=== PATIENT | male | born 1935 | race Caucasian/White ===

== ENCOUNTER 2017-11-27 18:00 | Inpatient (IN) | payer MEDICARE, BC ==
[2017-11-27] MEDS ORDERED: AMPICILLIN & SULBACTAM SODIUM 1.5 GM in SODIUM CHL 0.9% 50ML MIN-BAG+ 50 ML IVPB ONE (18:31)
--- NOTE | 2017-11-27 18:38 | ED.PDOC ---
History of Present Illness - General Time Seen by Provider: 11/27/17 18:28 Source: family, EMS Exam Limitations: clinical condition - History of Present Illness Initial Comments: patient comes in from the detention for fever, emesis, and hypoxia. Patient' s states that at lunchtime he was doing well and had a good appetite. He is nonverbal secondary to advanced dementia but this was his baseline. At dinner time nurse witnessed him with emesis with thick brown substance without overt bleeding. states that is what woke him up. On evaluation they found him to have a fever of 104 and a O2Sat of 82% on RA. EMS was called and despite O2 via NC his oxygen continued to be 86% and NRB was started. Per he has had aspiration pneumonia once before about a year ago. He was very ill but then was able to recover and has been able to ear without problems every since. He has history of essential tremor, dementia, and prostate cancer. Timing/Duration: 1-3 hours Severity: severe Activities at Onset: rest Possible Cause: other - see HPI hx of aspiration pneumonia Improving Factors: nothing Worsening Factors: nothing Allergies/Adverse Reactions: Allergies NO KNOWN ALLERGY Allergy (Verified 11/07/14 12:00) Review of Systems - Review of Systems Review of Systems: 11/27/17 18:38 unable to evaluate secondary to advanced dementia. Past Medical History (General) - Patient Medical History Hx Dementia: Yes Hx Other PMH: Yes - Prostate CA, essential tremor Family Medical History - Family History Father Family History: No Known Physical Exam - Physical Exam General Appearance: Frail, Ill Appearing Eyes, Ears, Nose, Throat Exam: PERRL/EOMI, normal ENT inspection, TMs normal, pharynx normal, other - brittle broken teeth Neck: non-tender, full range of motion, supple, normal inspection Respiratory: no respiratory distress, crackles, other - fine crackles at the right base, no wheezes Cardiovascular/Chest: normal peripheral pulses, regular rate, rhythm, no edema, no gallop, no JVD Peripheral Pulses: radial,right: 2+, radial,left: 2+ Gastrointestinal/Abdominal: normal bowel sounds, non tender, soft, no organomegaly Neurologic: other - patient will open eyes to touch but does not follow command and does not vocalize. per he no longer verbalizes and best response is holding her hand at baseline Progress - Progress Progress: 11/27/17 19:25 11/27/17 18:52 LACTIC ACID Stat BLOOD CULTURE Stat Laboratory Results WBC 11.6 K/mm3 (4.8-10.8) H 11/27/17 18:31 RBC 4.91 M/mm3 (4.70-6.10) 11/27/17 18:31 Hgb 14.8 gm/dL (14.0-18.0) 11/27/17 18: Hct 43.6 % (42.0-52.0) 11/27/17 18: MCV 88.8 fl (80.0-94.0) 11/27/17 18: MCH 30.2 pg (27.0-31.0) 11/27/17 18: MCHC 34.0 g/dL (33.0-37.0) 11/27/17 18: RDW 13.9 % (11.5-14.5) 11/27/17 18: Plt Count 199 K/mm3 (130-400) 11/27/17 18: MPV 9.3 fl (7.40-10.4) 11/27/17 18:31 Absolute Neuts (auto) 10.30 K/uL (1.8-6.8) H 11/27/17 18: Absolute Lymphs (auto) 0.90 K/uL (1.0-3.4) L 11/27/17 18:31 Absolute Monos (auto) 0.30 K/uL (0.2-0.8) 11/27/17 18: Absolute Eos (auto) 0.10 K/uL (0.0-0.4) 11/27/17 18: Absolute Basos (auto) 0.10 K/uL (0.0-0.1) 11/27/17 18: Neutrophils % 88.7 % (42.0-78.0) H 11/27/17 18: Lymphocytes % 7.5 % (20.0-50.0) L 11/27/17 18:31 Monocytes % 2.8 % (2.0-9.0) 11/27/17 18: Eosinophils % 0.5 % (1.0-5.0) L 11/27/17 18: Basophils % 0.5 % (0.0-2.0) 11/27/17 18: PT 12.8 SECONDS (9.4-12.5) H 11/27/17 18: INR 1.100 11/27/17 18: PTT (SP) 29.6 SECONDS (25.1-36.5) 11/27/17 18:31 Sodium 134 mmol/L (135-145) L 11/27/17 18: Potassium 3.7 mmol/L (3.6-5.0) 11/27/17 18: Chloride 102 mmol/L (101-111) 11/27/17 18: Carbon Dioxide 22 mmol/L (21-31) 11/27/17 18: Anion Gap 13.7 (12-18) 11/27/17 18: BUN 11 mg/dL (7-18) 11/27/17 18: Creatinine 0.83 mg/dL (0.6-1.3) 11/27/17 18: BUN/Creatinine Ratio 13.3 (10-20) 11/27/17 18: Random Glucose 115 mg/dL (70-105) H 11/27/17 18: Serum Osmolality 268.6 mOsm/L (275-295) L 11/27/17 18: Calcium 8.8 mg/dL (8.4-10.2) 11/27/17 18: Magnesium 1.8 mg/dL (1.8-2.5) 11/27/17 18: Total Bilirubin 0.9 mg/dL (0.2-1.0) 11/27/17 18: Direct Bilirubin 0.2 mg/dL (0-0.2) 11/27/17 18: Indirect Bilirubin 0.7 mg/dL (0.2-0.8) 11/27/17 18: AST 34 IU/L (10-42) 11/27/17 18: ALT 14 IU/L (10-60) 11/27/17 18: Alkaline Phosphatase 77 IU/L (42-121) 11/27/17 18: Creatine Kinase 31 IU/L (38-174) L 11/27/17 18: CK-MB (CK-2) 1.5 ng/mL (0.0-4.4) 11/27/17 18:31 CK-MB (CK-2) % Not Reportable 11/27/17 18:31 Troponin I < 0.02 ng/mL (0.01-0.05) 11/27/17 18:31 Serum Total Protein 7.5 gm/dL (6.4-8.2) 11/27/17 18:31 Albumin 3.6 g/dl (3.2-5.5) 11/27/17 18:31 Patient Name: GUMARO GARCIA Abnormal Lab Results 11/27/17 0718 18:31 18:52 WBC 11.6 H Absolute Neuts (auto) 10.30 H Absolute Lymphs (auto) 0.90 L Neutrophils % 88.7 H Lymphocytes % 7.5 L Eosinophils % 0.5 L PT 12.8 H Sodium 134 L Random Glucose 115 H Serum Osmolality 268.6 L Lactic Acid 2.5 H* Creatine Kinase 31 L Gender: Male Date of : 1935 Referring Physician: RUBIN WALL Organization: [facility] Accession Number: [id number] Requested Date: November 27, 2017 18:31 Report Status: Final Requested Procedure: 1 Procedure Description: Chest,1 View Modality: CR Findings Reporting MD: Abdelrahman Leos Fellow MD: Not available Dictation Time: Pediatric Oncology Nurse: Not available Kick Plate Installer Date: EXAM DESCRIPTION: Chest,1 View CLINICAL HISTORY: ?aspiration pneumonia COMPARISON: None FINDINGS: Cardiac silhouette is within normal limits. Patient is rotated. EKG leads project over the chest. Aorta is tortuous. There is atherosclerosis. Focal opacity at the right lower lung could be secondary to atelectasis, an infectious process cannot be excluded. Apices are obscured by superimposed patient's mandible. There is no acute osseous process visualized. IMPRESSION: Focal opacity at the right lower lung could be secondary to atelectasis, an infectious process cannot be excluded. Recommend follow-up. 11/27/17 19:41 spoke to and she desires him to be admitted here. She is ok with antibiotics but no invasive treatment or resuscitation. We have called incident response engineer UROLOGY NURSE James Garcia and he will be admitted Departure - Departure Clinical Impression: Pneumonia Qualifiers: Pneumonia type: aspiration pneumonia Aspiration pneumonia type: due to vomit Laterality: right Lung location: lower lobe of lung Qualified Code(s): J69.0 - Pneumonitis due to inhalation of food and vomit Disposition: Admit Patient Condition: Poor Referrals: MARIALUISA NOLAN [Primary Care Provider] - 1-2 Weeks
[2017-11-27] MEDS ORDERED: AMPICILLIN & SULBACTAM SODIUM 1.5 GM VIAL ONE (19:12)
[2017-11-27] MEDS ORDERED: SODIUM CHL 0.9% 50ML MIN-BAG+ 50 ML IVPB ONE (19:13)
--- NOTE | 2017-11-27 19:23 | RAD ---
EXAM DESCRIPTION: Chest,1 View CLINICAL HISTORY: ?aspiration pneumonia COMPARISON: None FINDINGS: Cardiac silhouette is within normal limits. Patient is rotated. EKG leads project over the chest. Aorta is tortuous. There is atherosclerosis. Focal opacity at the right lower lung could be secondary to atelectasis, an infectious process cannot be excluded. Apices are obscured by superimposed patient's mandible. There is no acute osseous process visualized. IMPRESSION: Focal opacity at the right lower lung could be secondary to atelectasis, an infectious process cannot be excluded. Recommend follow-up. Electronically signed by: Abdelrahman Leos MD 11/27/2017 7:22 PM CDT
[2017-11-27] MEDS ORDERED: SODIUM CHLORIDE 0.9% (FLUSH) 10 ML SYG IV PRN (21:18)
--- NOTE | 2017-11-27 21:18 | HP ---
SUPERVISING PHYSICIAN: Bill Valdez MD CHIEF COMPLAINT: Aspiration. HISTORY OF PRESENT ILLNESS: Mr. Singh is an 82-year-old male patient who resides at [facility]. He presented to the Emergency Room from the custodial today with fever, emesis and hypoxia. His noted that at lunchtime he was doing well and had a good appetite. He is nonverbal due to advanced dementia, but apparently as at his normal baseline status. At dinnertime, the nursing staff witnessed that he had an episode of emesis with some thick, brown substance. His noted that it woke him up and on evaluation, he had a fever of 104 with O2 saturation 82% on room air. EMS was then called and despite O2 via nasal cannula, oxygen continued to be low at 86% and required a nonrebreather. His notes that the patient has had aspiration pneumonia in the past approximately a year previous. He has a significant history of essential tremor, dementia and prostate cancer, but otherwise has been doing fairly well. In the Emergency Room, the patient had initial temperature of 102.5 with heart rate 105, blood pressure 105/59, saturation 96% on nonrebreather. Laboratory studies showed he had a mild leukocytosis with a left shift. Chemistries showed he had elevated lactic acid at 2.5. Otherwise, electrolytes were within normal limits. BUN was 11, creatinine 0.3, liver functions all within normal limits. Troponin less than 0.02. Radiographic studies included a single-view chest x-ray and per radiologic interpretation, there was noted focal opacity in the right lower lung which could be secondary to atelectasis or infectious process. Given the concerns for aspiration pneumonia and being associated with health care as the patient resides at a long-term care facility, he was started on antibiotics initially to include Unasyn after blood cultures were completed. He was given a 500 mL bolus of normal saline and now is going to be admitted to the Medical/ Surgical Floor for further treatment and evaluation of pneumonia secondary to aspiration, health care acquired. The patient is nonverbal and history was provided by his . He is a Do Not Resuscitate status. His does not want him transferred for higher level of care, she wants to try initiation of antibiotics and treat the underlying pneumonia. At this time, the patient is going to be admitted to the Medical/Surgical Floor. He is in stable, but guarded condition. PAST MEDICAL HISTORY: 1. Prostate cancer. 2. Advanced dementia. 3. Essential tremor for which he takes propranolol. 4. Remote history of aspiration pneumonia. PAST SURGICAL HISTORY: None given. CURRENT MEDICATIONS: 1. Propranolol 40 mg at bedtime. ALLERGIES: NO KNOWN DRUG ALLERGIES. FAMILY HISTORY: Noncontributory. SOCIAL HISTORY: The patient is a resident of [facility]. He is . He does not smoke, drink or use illicit drugs. REVIEW OF SYSTEMS: Unobtainable secondary to the patient's advanced dementia and lethargic state. PHYSICAL EXAMINATION: VITAL SIGNS: Initially on Emergency Room admission, temperature 102.5. Blood pressure 105/59. Respirations 24. Saturation 96% on nonrebreather at rest. Admission weight 78.6 kg. GENERAL: On admission to the Medical/Surgical Floor, the patient appears to be comfortable in no acute distress. He is lethargic and does not respond to stimuli at this point. HEENT: Tympanic membranes clear bilaterally. Oropharynx is pink, slightly dry with some very poor dentition noted. No lesions. NECK: Supple, nontender with full range of motion, atraumatic. RESPIRATORY: Lung sounds were coarse with some crackles heard towards the bilateral bases and significant decreased with the patient having poor inspiratory effort. No audible wheezing was noted. CARDIOVASCULAR: Regular rate and rhythm without any appreciable murmurs, gallops, or rubs. ABDOMEN: Soft, nontender. Positive bowel sounds. NEUROLOGIC: The patient is lethargic. He will not open his eyes and does not participate in the exam. His notes that he no longer verbalizes, but will hold her hand at the bedside which apparently his is baseline status. LABORATORY: White count is slightly elevated at 11,600, hemoglobin 14.8, hematocrit 43.6, platelet count 199,000. Differential does show a left shift. Coagulation studies show PT 12.8, PT-T 29.6. Chemistry shows mild hyponatremia at 134, potassium normal at 3.7, BUN 11, creatinine 0.83, lactic acid elevated at 2.5. Liver enzymes were all within normal limits. Magnesium normal at 1.8, calcium 8.1. Troponin less than 0.02. Urinalysis pending, but the patient is incontinent and is unable to be catheterized apparently according to his due to previous prostate cancer. MICROBIOLOGY: Blood cultures pending. Sputum culture pending. RADIOLOGY: Single-view chest x-ray in the Emergency Department per radiologic interpretation shows a focal opacity at the right lower lung. This could be secondary to atelectasis or an infectious process could not be excluded. ASSESSMENT: 1. Aspiration pneumonia, health care associated as the patient resides in a long-term care facility, cannot completely rule out chemical pneumonitis versus overt infection. 2. Advanced dementia with essential tremor. 3. History of prostate cancer. 4. Sepsis secondary to #1 with lactic acidosis, fever and tachycardia along with leukocytosis secondary to #1. 5. Mild hypokalemia. 6. Mild dehydration. PLAN: The patient is going to be admitted to the Medical/Surgical Floor for ongoing treatment of aspiration pneumonia. He will be initiated on antibiotics based on the fact that he does live in a long-term care facility and there is concern for health care associated pneumonia. We started him on vancomycin 1250 mg x1 tonight and then continue with vancomycin per pharmacy protocol along with azithromycin for atypical coverage and Unasyn for coverage of the aspiration, 1.5 grams q.8h. and renally adjusted as needed. We will do aggressive pulmonary hygiene as much as possible, but the patient is not very responsive and we will certainly not probably proceed with treatment actively. We will try to get a sputum culture if possible. We will utilize DuoNeb treatments q.i.d. He is not having any significant wheezing at this point and we will hold off on steroid administration. He will be NPO tonight until we can do a further bedside swallow study before we start a diet back. Resume his home medications as appropriate once verified and updated. He will be on gastric protection with Protonix and DVT prophylaxis per protocol. We will anticipate his length of stay to be 2 to 3 days. The patient is a DNR and confirmed with the . We will approach his treatment aggressively with antibiotics and fluids, but no heroic efforts. Certainly if the patient is showing slow response after reasonable time of treatment, consideration for hospice care would be warranted as the patient has low quality of life and is in the stages of advanced dementia, but again we will discuss that at a later date with his . Until then, we will continue to monitor the patient closely and treat appropriately. If the patient is showing good clinical response and able to be discharged, we will continue with outpatient management discharge back to [facility] at appropriate time. #[id number] [facility]
[2017-11-27] MEDS ORDERED: ALBUTEROL SULFATE 2.5 MG/3 ML VIAL NEB PRN (21:24)
[2017-11-27] MEDS ORDERED: ACETAMINOPHEN 325 MG TAB PO PRN (21:24)
[2017-11-27] MEDS ORDERED: ONDANSETRON INJ 4 MG/2 ML VIAL IV PRN (21:24)
[2017-11-27] MEDS ORDERED: IV SET AND CAP CHANGE INJ INJ SCH (21:30)
[2017-11-27] MEDS ORDERED: VANCOMYCIN HCL INJ 1,000 MG VIAL IVPB ONE (21:32)
[2017-11-27] MEDS ORDERED: SODIUM CHLORIDE 0.9% 500ML 500 ML IVS ONE (21:36)
--- NOTE | 2017-11-27 21:41 | PCM.CORE ---
Physician DVT/VTE - Nurse DVT Assessment & Total Each Risk Factor Represents 3 Points: Age over 75 years, Medical PT with Hx of PR, CHF, Severe infection/sepsis Each Risk Factor Represents 1 Point: Medical PT at Bed Rest DVT Assessment Score: 7 - 5 or more Very High Risk Treatments: Early Ambulation *, Sequential Compression Device Pharmacological: Enoxaparin 40mg SQ Daily
[2017-11-27] MEDS ORDERED: SODIUM CHLORIDE 0.9% 250ML 250 ML ONE ×2 (22:33→22:34)
[2017-11-27] MEDS ORDERED: AZITHROMYCIN IV 500 MG VIAL IVPB ONE (22:34)
[2017-11-27] MEDS ORDERED: VANCOMYCIN HCL INJ 500 MG VIAL ONE (22:34)
[2017-11-27] MEDS: ENOXAPARIN SODIUM 40 MG/0.4 ML SYG SUBCU SCH (22:38)
[2017-11-27] MEDS: AZITHROMYCIN IV 500 MG in SODIUM CHLORIDE 0.9% 250ML 250 ML IVPB SCH (22:40)
[2017-11-27] MEDS: KCL 20 MEQ/NS 1,000 ML IVS PRN (23:01)
[2017-11-28] MEDS ORDERED: AMPICILLIN & SULBACTAM SODIUM 1.5 GM VIAL ONE ×3 (00:47→20:17)
[2017-11-28] MEDS ORDERED: SODIUM CHL 0.9% 50ML MIN-BAG+ 50 ML IVPB ONE ×3 (00:49→20:17)
[2017-11-28] MEDS: AMPICILLIN & SULBACTAM SODIUM 1.5 GM in SODIUM CHL 0.9% 50ML MIN-BAG+ 50 ML IVPB SCH ×3 (00:51→15:36)
[2017-11-28] MEDS: PANTOPRAZOLE SODIUM IV 40 MG VIAL IV SCH (06:27)
--- NOTE | 2017-11-28 07:30 | RAD ---
Procedure: XR CHEST 1 VIEW Exam Date: 11/28/2017 Ordering Provider: James Garcia NP Clinical Indication: Pneumonia Comparison: 11/27/2017 Findings: Cardiomediastinal silhouette is stable. Aortic calcification. Right basilar atelectasis and/or infiltrate. Left lung is clear. No large pleural effusions. No pneumothorax. Osseous structures are nonacute. Impression: 1. Right basilar atelectasis and/or infiltrate. Examination otherwise unchanged from prior. Electronically signed by: Irvin Schaeffer MD 11/28/2017 7:29 AM CDT
[2017-11-28] MEDS: IPRATROPIUM/ALBUTEROL 3 ML VIAL INH SCH ×4 (08:23→20:17)
[2017-11-28] MEDS ORDERED: VANCOMYCIN PER PHARMACY INJ SCH (09:00)
[2017-11-28] MEDS ORDERED: SODIUM CHLORIDE 0.9% 250ML 250 ML ONE ×3 (10:21→20:18)
[2017-11-28] MEDS ORDERED: VANCOMYCIN HCL INJ 1,000 MG VIAL IVPB ONE ×2 (10:21→20:18)
[2017-11-28] MEDS: VANCOMYCIN HCL INJ 1,000 MG in SODIUM CHLORIDE 0.9% 250ML 250 ML IVPB SCH ×2 (10:31→22:39)
[2017-11-28] MEDS: NON-FORMULARY MEDICATION 1 EA MIS (Propranolol Hcl [Propranolol Hcl] 40 MG) PO SCH ×2 (15:37→20:56)
[2017-11-28] MEDS: KCL 20 MEQ/NS 1,000 ML IVS PRN (16:15)
[2017-11-28] MEDS ORDERED: AZITHROMYCIN IV 500 MG VIAL IVPB ONE (20:19)
[2017-11-28] MEDS: AZITHROMYCIN IV 500 MG in SODIUM CHLORIDE 0.9% 250ML 250 ML IVPB SCH (20:59)
[2017-11-28] MEDS: ENOXAPARIN SODIUM 40 MG/0.4 ML SYG SUBCU SCH (21:48)
[2017-11-29] MEDS: AMPICILLIN & SULBACTAM SODIUM 1.5 GM in SODIUM CHL 0.9% 50ML MIN-BAG+ 50 ML IVPB SCH ×4 (00:35→23:28)
[2017-11-29] MEDS: PANTOPRAZOLE SODIUM IV 40 MG VIAL IV SCH (05:56)
[2017-11-29] MEDS ORDERED: AMPICILLIN & SULBACTAM SODIUM 1.5 GM VIAL ONE ×4 (08:12→19:46)
[2017-11-29] MEDS ORDERED: SODIUM CHL 0.9% 50ML MIN-BAG+ 50 ML IVPB ONE ×3 (08:12→19:46)
[2017-11-29] MEDS: IPRATROPIUM/ALBUTEROL 3 ML VIAL INH SCH ×4 (08:29→19:41)
--- NOTE | 2017-11-29 09:30 | PN ---
SUPERVISING PHYSICIAN: Bill Valdez MD DATE: 11/28/17 SUBJECTIVE: This morning the patient seems to be much better. He is much more alert and according to his is back to his baseline status which is nonverbal but following commands and able to eat. OBJECTIVE: VITAL SIGNS: T-max temperature was 100.9 with pulse of 70 with blood pressure 95/56, respirations 22, saturation 97% on 6 liters nasal cannula at rest. Weight was 79.8 kg. CHEST: Lung sounds are much improved compared to previous days but continues to be diminished with slight coarse sounds on the right more so; to the lateral posterior aspect but no wheezing or rhonchi. HEART regular rate and rhythm. ABDOMEN obese but soft, non-tender. Positive bowel sounds. EXTREMITIES: No cyanosis, clubbing, or edema. NEUROLOGIC: The patient is alert but nonresponsive with verbal, follows basic commands with his and his reports he is back to more of his baseline mental status which is nonverbal. LABORATORY: White count did go up to 19,900, hemoglobin 12.9, hematocrit 38.1, platelet count 157,000. Differential continued to show a left shift. Chemistries show normal electrolytes today with potassium 4.0, BUN 12, creatinine 0.69. Urinalysis is still pending. MICROBIOLOGY: Blood cultures remain negative at 24 hours. RADIOLOGY: Single-view chest x-ray this morning per radiology interpretation shows a right basilar atelectasis and if not improved, otherwise unchanged from previous. ASSESSMENT: 1. Aspiration pneumonia, health care associated as the patient is a long-term care facility with concerns for chemical pneumonitis with patient showing good response to initiation of antibiotic s and aggressive pulmonary hygiene. 2. Advanced dementia with essential tremor. 3. History of prostate cancer. 4. Sepsis secondary to #1 with lactic acidosis showing improvement with fluids , continuing with mild fever but normal heart rate and increasing leukocytosis secondary to #1.. 5. Hypokalemia on admission, resolved with fluid replacement. 6. Mild dehydration improving with fluids. PLAN: The patient is showing good response to current treatment, therefore will continue with antibiotics initiated on admission to include Unasyn, azithromycin and vancomycin. Will continue with aggressive pulmonary hygiene as much as possible. The patient is alert this morning and was able to actually follow commands and was able to take a diet. Will utilize thickness to prevent further decrease and risk of aspiration. His remains at his bedside and is helping tremendously with patient care. Will anticipate at least another 48 hours of aggressive management given the patient's underlying comorbidities and advanced age and significant infection. Again, the will consider hospice if the patient should not show any improvement over the next day or 2. Until the patient is improving clinically and can be discharged and followed with outpatient manage, we will continue to monitor and treat appropriately until he is discharged back to [facility]. #[id number] [facility]
[2017-11-29] MEDS ORDERED: IBUPROFEN 400 MG TAB PO PRN (10:33)
[2017-11-29] MEDS ORDERED: POTASSIUM CHLORIDE ELIXIR 20 MEQ/15 ML UD PO ONE (11:19)
[2017-11-29] MEDS: AZITHROMYCIN 250 MG TAB PO SCH (11:33)
[2017-11-29] MEDS: KCL 20 MEQ/NS 1,000 ML IVS PRN (11:41)
[2017-11-29] MEDS: NON-FORMULARY MEDICATION 1 EA MIS (Propranolol Hcl [Propranolol Hcl] 40 MG) PO SCH ×3 (18:06→20:12)
[2017-11-29] MEDS: ENOXAPARIN SODIUM 40 MG/0.4 ML SYG SUBCU SCH (21:30)
--- NOTE | 2017-11-29 21:48 | PN ---
DATE: 11/29/17 SUPERVISING PHYSICIAN: Bill Valdez M.D. SUBJECTIVE: The patient is showing good clinical response to treatment. His has been at his bedside the majority of the time in the hospital. In talking to her at length, she says that the patient is responding back to his normal baseline status and she is very pleased with the way he has improved. She wishes to continue with antibiotics but forego any additional lab draws unless just absolutely necessary with considerations of more of a care and comfort method, but wants to continue with antibiotics. I did discuss with her that we could follow her wishes in regards to holding off on labs and we would stop the vancomycin as he was improving and continue with 2 antibiotics that he could go back to the senior living on. She voices that if he is able to tomorrow and he looks improved as well as he is today, she would like to take him back to the senior living tomorrow. OBJECTIVE: VITAL SIGNS: He did run a low-grade fever last night of 100.6, pulse 75, blood pressure 101/52, respirations 20, satting 94% on nasal cannula at 2 liters. I's and O's are not measured as he is incontinent. He has had 1 bowel movement. Weight is 80.7 kg. CHEST: Lung sounds are much improved today , just slightly diminished towards the bases bilaterally with no obvious rhonchi , wheezing or rales. HEART: Regular rate and rhythm. ABDOMEN: Soft, non- tender. Positive bowel sounds. EXTREMITIES: No clubbing, cyanosis or edema. NEUROLOGIC: The patient is alert, nonverbal and according to his is back to his baseline mental status. He is able to participate with meal time and interacts with his and actually is able to get up to a bedside chair. LABORATORY: White count is showing improvement, it is down to 18,800 with hemoglobin stable at 11.7, hematocrit 34.8, platelet count 153,000. Differential does show a left shift continued. Chemistries are showing normal electrolytes, just a mildly low potassium at 3.4, BUN 13, creatinine 0.59, calcium 7.7. MICROBIOLOGY: Blood cultures are pending. Sputum cultures were never collected as he was unable to participate in collection of the sputum. RADIOLOGY: No additional radiographic studies were completed today. ASSESSMENT: 1. Healthcare associated aspiration pneumonia in a patient residing in a long- term care facility with remote concerns for possible chemical pneumonitis with patient showing continued good response with antibiotics and aggressive pulmonary hygiene. 2. Advanced dementia with essential tremor controlled with Propranolol. 3. History of prostate cancer. 4. Sepsis on admission secondary to #1 with an elevated lactic acid but improved with fluids with a continued mild low fever, but normal heart rate and decreasing leukocytosis. 5. Mild hypokalemia requiring oral replacement, showing improvement. 6. Mild dehydration improving with fluids. PLAN: Again, in talking with the , she is very pleased with his response and his care at this point, but expresses that we would not draw any labs if possible at this point as he is showing improvement and she is not wanting any aggressive management other than just antibiotics. I did discuss with her that this was not a problem. We would stop the vancomycin as that was the only medication we had to monitor and he is showing good clinical response. Will continue with his 2 antibiotics to include Unasyn and azithromycin which we can both transition to p.o. medication. If the patient continues to show improvement tomorrow, his has expressed that she would like to have him transferred back to the senior living. I did discuss with her that this was a good possibility with no questions of continuation of antibiotics as we can transition him to p.o. medications for both current antibiotics, including azithromycin which we will do today and transition him tomorrow to Augmentin once we get ready to transfer him back to the senior living. Again, there was a discussion of hospice and this is certainly something that can be continued in the outpatient setting, but at this point the patient is showing good clinical response and will continue with the plan at this point to discharge tomorrow on oral medications if something drastically changes in the next 24 hours. Until that point, will continue to monitor and hopefully be able to discharge him and transfer him back to [facility] in the morning. #[id number] [facility]
[2017-11-30] MEDS: KCL 20 MEQ/NS 1,000 ML IVS PRN (01:04)
[2017-11-30] MEDS: PANTOPRAZOLE SODIUM IV 40 MG VIAL IV SCH (06:27)
[2017-11-30] MEDS ORDERED: SODIUM CHL 0.9% 50ML MIN-BAG+ 50 ML IVPB ONE (08:02)
[2017-11-30] MEDS ORDERED: AMPICILLIN & SULBACTAM SODIUM 1.5 GM VIAL ONE (08:02)
[2017-11-30] MEDS: AMPICILLIN & SULBACTAM SODIUM 1.5 GM in SODIUM CHL 0.9% 50ML MIN-BAG+ 50 ML IVPB SCH (08:15)
[2017-11-30] MEDS: IPRATROPIUM/ALBUTEROL 3 ML VIAL INH SCH ×2 (08:32→11:48)
[2017-11-30] MEDS: AZITHROMYCIN 250 MG TAB PO SCH (10:32)
[2017-11-30 12:13] VITALS: BP 152/77; TEMP 98.2; O2SAT 94
--- NOTE | 2017-12-01 09:36 | DS ---
SUPERVISING PHYSICIAN: Bill Valdez MD ADMISSION DIAGNOSIS: 1. Aspiration pneumonia, health care associated as the patient resides in a long-term care facility, with concerns for chemical pneumonitis. 2. Advanced dementia with essential tremor. 3. History of prostate cancer. 4. Sepsis secondary to #1 with lactic acidosis, fever and tachycardia along with leukocytosis secondary to #1. 5. Electrolyte imbalance to include hypokalemia. 6. Mild dehydration. DISCHARGE DIAGNOSIS: 1. Healthcare associated aspiration pneumonia, showing good response to antibiotic therapy and aggressive pulmonary hygiene. 2. Advanced dementia with essential tremor, controlled with Propranolol. 3. History of prostate cancer. 4. Sepsis secondary to #1, resolved with treatment. 5. Electrolyte imbalance to include hypokalemia, improved with oral replacement. 6. Mild dehydration, improved with fluids. REASON FOR HOSPITALIZATION: Mr. Singh is an 82-year-old male patient who resides at [facility]. He presented to the Emergency Room on 11/27/17 with fever, emesis and hypoxia. His noted that at lunchtime he was doing well and had a good appetite. He is normally nonverbal due to advanced dementia, but apparently was at his normal baseline status. At dinnertime, the nursing staff witnessed that he had an episode of emesis with some thick, brown substance. His noted that it woke him up and on evaluation, he had a fever of 104 with O2 saturation 82% on room air. EMS was then called and despite O2 via nasal cannula, oxygen continued to be low at 86% and required a nonrebreather. His notes that the patient has had aspiration pneumonia in the past approximately a year previous. He has a significant history of essential tremor, dementia and prostate cancer, but otherwise has been doing fairly well. In the Emergency Room, the patient had initial temperature of 102.5 with heart rate 105, blood pressure 105/59, saturation 96% on nonrebreather. Initial laboratory studies showed he had a mild leukocytosis with a left shift. Chemistries showed he had elevated lactic acid at 2.5. Radiographic studies included a single-view chest x-ray and per radiologic interpretation, there was noted focal opacity in the right lower lung which could be secondary to atelectasis or infectious process. Given the concerns for aspiration pneumonia and being associated with health care as the patient resides at a long-term care facility, he was started on antibiotics initially to include Unasyn after blood cultures were completed. He was given a 500 mL bolus of normal saline and admitted to the Medical/Surgical Floor for further treatment and evaluation of pneumonia secondary to aspiration, health care acquired. The patient is nonverbal and history was provided by his . He is a Do Not Resuscitate status in place at time of admission. His was adamant that he not be transferred for higher level of care, she wants to try initiation of antibiotics and treat the underlying pneumonia. At the time of admission, he was in stable, but guarded condition. LABORATORY: CBC on admission showed a leukocytosis of 11,600. It did go up to a maximum of 19,900, but showed improvement and was down to 18,800 on 11/29/17. Gallbladder was stable at 11.7, hematocrit 34.8. RBC indices were normocytic/ normochromic. Platelet count 152,000. Differential did show a left shift. He had normal coagulation studies. Chemistries on admission showed a mild hyponatremia at 134. Otherwise, electrolytes were within normal limits with lactic acid 2.5 which did normalize to 2.1 after fluids. Liver functions were all within normal limits. Troponin was less than 0.02. On 11/29/17, the day prior to discharge, electrolytes were normal except for mildly low potassium at 3.5, BUN 13, creatinine 0.59, calcium 7.7. MICROBIOLOGY: Blood cultures remained negative after 3 days. There was on sputum produced for culture. RADIOLOGY: Chest x-ray on admission per radiologic interpretation showed focal opacity in the right lower lung which could represent atelectasis or infectious process. It was followed up with additional prescription on 11/28/17 and per radiologic interpretation showed right basilar atelectasis/infiltrate and examination unchanged otherwise. HOSPITAL COURSE: Mr. Singh was admitted from the Emergency Room on 11/27/17 for treatment of aspiration pneumonia. He was initiated on antibiotic therapy which included Unasyn, azithromycin and vancomycin. The patient showed good clinical response and 24 hours after admission on antibiotics, the patient was back to his normal baseline mental status. His noted he was much improved. On the second day of admission, he continued to show improvement and at that point the requested that we not do any more laboratory studies or x -rays as she felt the patient was improved and she would like to just continue with basic antibiotics and if he continued to improve, [facility]. At that point, due to inability to draw labs, vancomycin was discontinued. He was continued on azithromycin and Unasyn and continued to show good clinical response. He was afebrile, hemodynamically stable and was actually up to a chair and participating with his lunches and according to his was back to his normal self. It was felt he had progressed clinically well enough and was able to transition to p.o. medications to continue antibiotic treatment and therefore could go back to the care facility. PLAN: Mr. Singh was discharged back to [facility] on 11/30/17 to be followed up by Dr. Munroe in the following week. The care facility was to call for a followup appointment. He was resumed on his regular diet. Activities were to be per physical therapy with an order for physical therapy for evaluation and treatment. He was to return to the hospital should he have any concerning symptoms. DISCHARGE MEDICATIONS: 1. Tylenol 500 mg q.4h. as needed for fever unrelieved by Motrin. 2. Albuterol nebulizers 2.5 mg q.4h. as needed for shortness of breath, #30. 3. Motrin 400 mg q.4h. as needed for fever not relieved by Tylenol. 4. Augmentin 875 mg twice daily for 7 days. 5. Zyvox 600 mg twice daily for additional 5 days. All other medications prior to admission were continued. Condition at discharge was stable and improved. #[id number] [facility]
== END 2017-11-30 14:10 | DRG 871 ==
LOC: ER 18:00 → MS 21:16
PROVIDERS: ADMIT Nurse Practitioner Family; ATTEND Nurse Practitioner Family
DX: A41.9 Sepsis, unspecified organism (principal); J69.0 Pneumonitis due to inhalation of food and vomit; E87.1 Hypo-osmolality and hyponatremia; R09.02 Hypoxemia; F03.90 Unspecified dementia, unspecified severity, without behavioral disturbance, psychotic disturbance, mood disturbance, and anxiety; G25.0 Essential tremor; E87.6 Hypokalemia; E86.0 Dehydration; R32 Unspecified urinary incontinence; E66.9 Obesity, unspecified; Z85.46 Personal history of malignant neoplasm of prostate; Z66 Do not resuscitate; Y95 Nosocomial condition; Z68.25 Body mass index [BMI] 25.0-25.9, adult

== ENCOUNTER → 2018-02-12 | Outpatient (CLI) | payer MEDICARE, BC | LOC: GOCC 20:38 | PROVIDERS: ATTEND Family Medicine | DX: R30.0 Dysuria (principal) ==

== ENCOUNTER → 2018-02-27 | Outpatient (CLI) | payer MEDICARE, BC | LOC: GMAJS 16:38 | PROVIDERS: ATTEND Physician Assistant | DX: R30.0 Dysuria (principal) ==

== ENCOUNTER 2018-08-11 12:59 | Emergency (ER) | payer MEDICARE, BC ==
[2018-08-11 13:20] VITALS: TEMP 97.1
--- NOTE | 2018-08-11 14:11 | ED.PDOC ---
History of Present Illness - General Chief Complaint: General Stated Complaint: Possible seizure activity Time Seen by Provider: 08/11/18 13:25 Source: family Exam Limitations: no limitations - History of Present Illness Initial Comments: HIS IS AT BEDSIDE AND TAKES CARE OF HIM REGULARLY AT THE [facility]. PT IS AT [facility] FOR ADVANCED CHRONIC DEMENTIA. CHRONICALLY UNRESPONSIVE AND ALMOST CATATONIC STATE. HE IS ON HOSPICE WITH COMFORT CARES. NO H/O SZ. PT HAS BEEN DISCONTINUED FOR ALL HOME MEDICATIONS (NO LONGER ON CHRONIC MEDS). TODAY HIS NOTICED JERKING MOVEMENTS IN HIS BUE LASTING A FEW MINUTES. SHE WONDERS IF HE MIGHT HAVE HAD A SEIZURE. HE HAS BACK BACK TO BASELINE SINCE (UNRESPONSIVE, CATATONIC). Timing/Duration: resolved prior to arrival, gone Severity: moderate Improving Factors: nothing Worsening Factors: nothing Allergies/Adverse Reactions: Allergies NO KNOWN ALLERGY Allergy (Verified 11/28/17 00:40) Home Medications: Ambulatory Orders Propranolol HCl 40 mg PO BEDTIME 11/27/17 Acetaminophen [Tylenol] 500 mg PO Q4HR PRN #90 tab 11/30/17 Albuterol Sulfate Nebs [Proventil Nebs] 2.5 mg INH Q4HR PRN #30 vial 11/30/17 Amoxicillin & Pot Clavulanate [Augmentin Tab] 875 mg PO BID #14 tab 11/30/17 Ibuprofen [Motrin] 400 mg PO Q4HR #90 tab 11/30/17 Linezolid [Zyvox] 600 mg PO BID #10 tab 11/30/17 Review of Systems - Review of Systems Unable to Obtain Due To: dementia All other Systems: No 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 Past Medical History (General) - Patient Medical History Hx Seizures: No Hx Stroke: No Hx Dementia: Yes Hx Asthma: No Hx of COPD: No Hx Cardiac Disorders: No Hx Congestive Heart Failure: No Hx Pacemaker: No Hx Hypertension: Yes Hx Diabetes: No Hx Gastroesophageal Reflux: Yes Hx Cancer: No Hx MRSA: No - Vaccination History Hx Influenza Vaccination: Yes - 2018 Hx Pneumococcal Vaccination: Yes - Social History Hx Tobacco Use: No Hx Alcohol Use: No Hx Substance Use: No Hx Physical Abuse: No Hx Emotional Abuse: No - Activities of Daily Living Group Home/Assisted Living (if applicable):: [facility] Family Medical History - Family History Father Family History: No Known Living Status: Age at (years of age): 75 Hx Family Cancer: Yes Mother Living Status: Age at (years of age): 97 Hx Family Asthma: Yes Physical Exam - Physical Exam General Appearance: Well Groomed, Other - UNRESPONSIVE; NO EYE CONTACT. Eye Exam: bilateral normal Ears, Nose, Throat: normal ENT inspection, normal pharynx Neck: non-tender, supple, normal inspection Respiratory: chest non-tender, lungs clear, normal breath sounds, no respiratory distress, no accessory muscle use Cardiovascular/Chest: normal peripheral pulses, regular rate, rhythm, no JVD, no murmur Peripheral Pulses: radial,right: 1+, radial,left: 1+ Gastrointestinal/Abdominal: normal bowel sounds, non tender, soft, no organomegaly, no pulsatile mass Rectal Exam: deferred Back Exam: no CVA tenderness, no vertebral tenderness Extremity: other - RIGIDITIY X ALL 4 EXTREMITIES, C/W HIS CHRONIC, ADVANCED DEMENTIA. 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 , alert, other - AWAKE Skin Exam: normal color, warm/dry Lymphatic: no adenopathy Progress - Progress Progress: 08/11/18 15:09 CBC, CMP, EKG NEG. CLINICALLY NOT C/W SZ. C/W MUSCLE SPASMS/MYOCLONUS RELATED TO THE END-STAGE DEMENTIA. HIS DECLINES THE OFFER TO SEE NEUROLOGY FOR FURTHER EVALUATION SINCE HE IS ON COMFORT CARES. Departure - Departure Clinical Impression: Advanced dementia, Myoclonus Disposition: Discharge to SNF Condition: Fair Departure Forms: ED Discharge - Pt. Copy, Patient Portal Self Enrollment Instructions: Dementia (DC) Diet: resume usual diet Activity: as per physical therapy Referrals: Brian Munroe MD [Primary Care Provider] - 1-2 Weeks Home Medications: Ambulatory Orders Propranolol HCl 40 mg PO BEDTIME 11/27/17 Acetaminophen [Tylenol] 500 mg PO Q4HR PRN #90 tab 11/30/17 Albuterol Sulfate Nebs [Proventil Nebs] 2.5 mg INH Q4HR PRN #30 vial 11/30/17 Amoxicillin & Pot Clavulanate [Augmentin Tab] 875 mg PO BID #14 tab 11/30/17 Ibuprofen [Motrin] 400 mg PO Q4HR #90 tab 11/30/17 Linezolid [Zyvox] 600 mg PO BID #10 tab 11/30/17 Additional Instructions: If the muscle spasm episodes persist, please consult with your doctor and possibly a neurologist.
[2018-08-11 15:42] VITALS: BP 137/60; O2SAT 96
== END 2018-08-11 15:25 ==
LOC: ER 12:59
DX: F03.90 Unspecified dementia, unspecified severity, without behavioral disturbance, psychotic disturbance, mood disturbance, and anxiety (principal); G25.3 Myoclonus; I10 Essential (primary) hypertension; K21.9 Gastro-esophageal reflux disease without esophagitis; Z79.899 Other long term (current) drug therapy

== ENCOUNTER 2018-12-23 13:45 | Emergency (ER) | payer MEDICARE, BC ==
--- NOTE | 2018-12-23 14:03 | ED.PDOC ---
History of Present Illness - General Chief Complaint: Neuro Symptoms/Deficits Stated Complaint: unresponsive Time Seen by Provider: 12/23/18 14:02 Source: family Exam Limitations: clinical condition - advance dementia-non verbal - History of Present Illness Initial Comments: margot Singh 83 y/o male with history of vascular dementia resident at [facility] brought by ems to ER after becoming unresponsive eyes rolled back which happened also in the past while being fed by the today at the [place].On arrival with accompanying patient she stated does not want any life supporting measures to be done. Timing/Duration: 1 hour Severity: moderate Episode Description: see hpi Improving Factors: nothing Worsening Factors: nothing Associated Symptoms: other - see hpi Allergies/Adverse Reactions: Allergies NO KNOWN ALLERGY Allergy (Verified 11/28/17 00:40) Home Medications: Ambulatory Orders Propranolol HCl 40 mg PO BEDTIME 11/27/17 Acetaminophen [Tylenol] 500 mg PO Q4HR PRN #90 tab 11/30/17 Albuterol Sulfate Nebs [Proventil Nebs] 2.5 mg INH Q4HR PRN #30 vial 11/30/17 Amoxicillin & Pot Clavulanate [Augmentin Tab] 875 mg PO BID #14 tab 11/30/17 Ibuprofen [Motrin] 400 mg PO Q4HR #90 tab 11/30/17 Linezolid [Zyvox] 600 mg PO BID #10 tab 11/30/17 Ciprofloxacin [Cipro] 500 mg PO BID 10 Days #20 tab 12/23/18 Review of Systems - Review of Systems Neurological: States: see HPI, other - AMS Unable to Obtain Due To: condition, dementia Past Medical History (General) - Patient Medical History Hx Seizures: No Hx Stroke: No Hx Dementia: Yes Hx Asthma: No Hx of COPD: No Hx Cardiac Disorders: No Hx Congestive Heart Failure: No Hx Pacemaker: No Hx Hypertension: Yes Hx Diabetes: No Hx Gastroesophageal Reflux: Yes Hx Cancer: No Hx MRSA: No Hx Other PMH: Yes - vascular dementia Surgical History: appendectomy, other - cardiac cath - Vaccination History Hx Influenza Vaccination: Yes - 2018 Hx Pneumococcal Vaccination: Yes - Social History Hx Tobacco Use: No Hx Alcohol Use: No Hx Substance Use: No Hx Physical Abuse: No Hx Emotional Abuse: No - Activities of Daily Living Patient Lives Alone: No Assisted/Assisted Living (if applicable):: [facility] Grooming Ability: Total Assistance Eating (Feeding) Ability: Total Assistance Toileting Ability: Total Assistance Family Medical History - Family History Father Family History: No Known Living Status: Age at (years of age): 75 Hx Family Asthma: Yes - mom Hx Family Cancer: Yes - prostate-dad Mother Living Status: Age at (years of age): 97 Hx Family Asthma: Yes Physical Exam - Physical Exam General Appearance: Other - moans with painful stimulus Eye Exam: bilateral normal ENT Exam: normal ENT inspection, hearing grossly normal Neck: trachea midline, other - contracture deformity Respiratory: lungs clear, normal breath sounds, no respiratory distress Cardiovascular/Chest: normal peripheral pulses, regular rate, rhythm, no murmur Peripheral Pulses: radial,right: 2+, radial,left: 2+ Gastrointestinal/Abdominal: soft, no organomegaly Back Exam: normal inspection Extremities Exam: no edema Mental Status: unresponsive Skin Exam: normal color, warm/dry Progress - Progress Progress: 12/23/18 14:21 Vital Signs - 8 hr 12/23/18 13:51 Temperature 97.2 F L Pulse Rate [ 89 Right Brachial] Respiratory 16 Rate Blood Pressure 129/78 [Left Arm] O2 Sat by Pulse 95 Oximetry 12/23/18 16:19 Was about to start antibiotics but declined since he had bad yeast infection in the past stated he is DNR;Recommended palliative care for care and comfort but again stated could not take opiates.Wants to bring him back to [facility] - Results/Orders Results/Orders: 12/23/18 14:15 EKG STAT 12/23/18 15:29 Piperacillin/Tazobactam [Zosyn] 3.375 gm Sodium Chloride 0.9% 100Ml [NS (NACL 0.9%) 100ml] 100 ml IVPB ONCE 12/23/18 15:45 Urine Culture Stat Laboratory Results - last 24 hr 12/23/18 12/23/18 12/23/18 13:35 13:35 14:19 WBC 14.8 H RBC 5.06 Hgb 15.1 Hct 46.4 MCV 91.6 MCH 29.9 MCHC 32.6 L RDW 14.5 Plt Count 238 MPV 9.9 Absolute Neuts (auto) Not Reportable Absolute Lymphs (auto) Not Reportable Absolute Monos (auto) Not Reportable Absolute Eos (auto) Not Reportable Neutrophils % Not Reportable Neutrophils % (Manual) 28.0 L Lymphocytes % Not Reportable Lymphocytes % (Manual) 59.0 Monocytes % Not Reportable Monocytes % (Manual) 6.0 Eosinophils % Not Reportable Basophils % Not Reportable Band Neutrophils 4.0 H Metamyelocytes 2.0 H Myelocytes 1.0 H Platelet Estimate Normal Normal RBC Morphology Normal rbc morph PT 10.3 INR 1.03 PTT (SP) 27.0 Sodium 140 Potassium 3.8 Chloride 107 Carbon Dioxide 19 L Anion Gap 17.8 BUN 17 Creatinine 0.84 BUN/Creatinine Ratio 20.2 H Random Glucose 143 H Serum Osmolality 283.4 Lactic Acid 5.5 H* Calcium 9.1 Magnesium 2.3 Total Bilirubin 0.5 Direct Bilirubin 0.1 Indirect Bilirubin 0.4 AST 44 H ALT 17 Alkaline Phosphatase 78 Creatine Kinase 39 CK-MB (CK-2) 3.4 CK-MB (CK-2) % Not Reportable Troponin I < 0.02 Serum Total Protein 7.8 Albumin 3.6 Urine Color Urine Appearance Urine pH Ur Specific [place] Urine Protein Urine Glucose (UA) Urine Ketones Urine Blood Urine Nitrite Urine Bilirubin Urine Urobilinogen Ur Leukocyte Esterase Urine RBC Urine WBC Ur Epithelial Cells Triple Phos Crystals Amorphous Sediment Urine Bacteria 12/23/18 15:45 WBC RBC Hgb Hct MCV MCH MCHC RDW Plt Count MPV Absolute Neuts (auto) Absolute Lymphs (auto) Absolute Monos (auto) Absolute Eos (auto) Neutrophils % Neutrophils % (Manual) Lymphocytes % Lymphocytes % (Manual) Monocytes % Monocytes % (Manual) Eosinophils % Basophils % Band Neutrophils Metamyelocytes Myelocytes Platelet Estimate Normal RBC Morphology PT INR PTT (SP) Sodium Potassium Chloride Carbon Dioxide Anion Gap BUN Creatinine BUN/Creatinine Ratio Random Glucose Serum Osmolality Lactic Acid Calcium Magnesium Total Bilirubin Direct Bilirubin Indirect Bilirubin AST ALT Alkaline Phosphatase Creatine Kinase CK-MB (CK-2) CK-MB (CK-2) % Troponin I Serum Total Protein Albumin Urine Color Yellow Urine Appearance Cloudy Urine pH 7.5 Ur Specific [place] 1.020 Urine Protein 30 Urine Glucose (UA) Negative Urine Ketones Negative Urine Blood Negative Urine Nitrite Positive H Urine Bilirubin Negative Urine Urobilinogen 1.0 Ur Leukocyte Esterase Large H Urine RBC 1-3 Urine WBC 40-50 H Ur Epithelial Cells 0-1 Triple Phos Crystals 1+ Amorphous Sediment 1+ Urine Bacteria 3+ H Explained test result to declined to have iv antibiotics prefers to give it orally Departure - Departure Clinical Impression: Acute on chronic alteration in mental status Urinary tract infection Qualifiers: Urinary tract infection type: site unspecified Hematuria presence: without hematuria Qualified Code(s): N39.0 - Urinary tract infection, site not specified Time of Disposition: 16:27 Disposition: Discharge to SNF Condition: Poor Departure Forms: ED Discharge - Pt. Copy, Patient Portal Self Enrollment Referrals: Margot Munroe MD [Primary Care Provider] - 1-2 Weeks Prescriptions: Ciprofloxacin [Cipro] 500 mg PO BID 10 Days #20 tab Home Medications: Ambulatory Orders Propranolol HCl 40 mg PO BEDTIME 11/27/17 Acetaminophen [Tylenol] 500 mg PO Q4HR PRN #90 tab 11/30/17 Albuterol Sulfate Nebs [Proventil Nebs] 2.5 mg INH Q4HR PRN #30 vial 11/30/17 Amoxicillin & Pot Clavulanate [Augmentin Tab] 875 mg PO BID #14 tab 11/30/17 Ibuprofen [Motrin] 400 mg PO Q4HR #90 tab 11/30/17 Linezolid [Zyvox] 600 mg PO BID #10 tab 11/30/17 Ciprofloxacin [Cipro] 500 mg PO BID 10 Days #20 tab 12/23/18 Additional Instructions: Return to emergency room as needed
[2018-12-23] MEDS ORDERED: SODIUM CHLORIDE 0.9% 500ML 500 ML IVS ONE (14:05)
[2018-12-23 14:09] VITALS: TEMP 97.2
--- NOTE | 2018-12-23 14:13 | CT ---
PROVIDED CLINICAL HISTORY/REASON FOR EXAM: unresponsive TECHNIQUE: Volumetric CT data of the brain was obtained without intravenous contrast. This exam was performed according to our departmental dose-optimization program, which includes automated exposure control, adjustment of the mA and/or kV according to patient size and/or use of iterative reconstruction technique. COMPARISON: 05/13/2014 FINDINGS: Advanced volume loss. Severe chronic small vessel ischemic disease. Septum pellucidum and third ventricle are midline. No acute infarction is evident by CT. No acute hemorrhage is present. No mass or mass effect is present. The calvaria and soft tissues are unremarkable. Mucosal thickening in the left maxillary sinus. Inspissated secretions in the left sphenoid sinus.. IMPRESSION: 1. No acute intracranial hemorrhage or infarction. 2. Ventriculomegaly with advanced volume loss. 3. Paranasal sinus findings as above. 4. Severe chronic small vessel ischemic disease. Electronically signed by: Nik Franks MD 12/23/2018 2:11 PM CDT
--- NOTE | 2018-12-23 14:33 | RAD ---
EXAM DESCRIPTION: Chest,1 View CLINICAL HISTORY: 83 years Male, ams COMPARISON: 11/28/2017 IMPRESSION: The patient is significantly rotated, which markedly limits evaluation. The heart is enlarged, with central pulmonary vascular congestion. The lungs are hyperexpanded. Perihilar interstitial thickening which may be secondary to CHF with interstitial edema or multifocal pneumonia. No large pleural effusion or pneumothorax. Distended loops of bowel in the visualized upper abdomen. Electronically signed by: Twan Pretty MD 12/23/2018 2:32 PM CDT
[2018-12-23] MEDS ORDERED: PIPERACILLIN/TAZOBACTAM 3.375 GM in SODIUM CHLORIDE 0.9% 100ML 100 ML IVPB ONE (15:29)
[2018-12-23] MEDS ORDERED: PIPERACILLIN/TAZOBACTAM 3.375 GM VIAL IVPB ONE (15:43)
[2018-12-23] MEDS ORDERED: SODIUM CHLORIDE 0.9% 100ML 0 ML IVPB ONE (15:44)
[2018-12-23] MEDS ORDERED: CIPROFLOXACIN 500 MG TAB PO ONE (16:32)
[2018-12-23 16:55] VITALS: BP 136/75; O2SAT 94
== END 2018-12-23 16:54 ==
LOC: ER 13:45
DX: R41.82 Altered mental status, unspecified (principal); N39.0 Urinary tract infection, site not specified; I10 Essential (primary) hypertension; K21.9 Gastro-esophageal reflux disease without esophagitis; Z98.61 Coronary angioplasty status; Z66 Do not resuscitate; Z79.899 Other long term (current) drug therapy; F01.50 Vascular dementia, unspecified severity, without behavioral disturbance, psychotic disturbance, mood disturbance, and anxiety
CPT/HCPCS: 36415; 70450; 71045; 80048; 80076; 81001; 82550; 82553; 83605; 84484; 85025; 85610; 85730; 87086; 93005; J7040

== ENCOUNTER 2019-03-22 11:50 | Emergency (ER) | payer MEDICARE, BC ==
[2019-03-22] MEDS ORDERED: cefTRIAXone SODIUM 1 GM in SODIUM CHL 0.9% 100ML MINI-BAG 100 ML IVPB ONE (12:00)
[2019-03-22] MEDS ORDERED: SODIUM CHLORIDE 0.9% (FLUSH) 10 ML SYG IV PRN (12:00)
[2019-03-22] MEDS ORDERED: SODIUM CHLORIDE 0.9% 1000ML 1,000 ML IVS ONE ×2 (12:07→12:08)
[2019-03-22] MEDS ORDERED: SODIUM CHLORIDE 0.9% 1000ML 1,000 ML IVS PRN (12:08)
[2019-03-22] MEDS ORDERED: SODIUM CHL 0.9% 100ML MINI-BAG 100 ML IVPB ONE ×2 (12:09→12:25)
[2019-03-22 12:12] VITALS: TEMP 100.9
--- NOTE | 2019-03-22 12:32 | RAD ---
EXAM DESCRIPTION: Chest,1 View CLINICAL HISTORY: 83 years Male, fever COMPARISON: 12/23/2018 TECHNIQUE: Single frontal view of the chest. IMPRESSION: Patient is rotated as before which limits evaluation of the mediastinum. However, heart appears enlarged as before. Mild central pulmonary vascular congestion is unchanged. No lobar consolidation. No pleural effusion or pneumothorax. Thoracic spondylosis. Electronically signed by: Alexei Cordoba MD 03/22/2019 12:31 PM CDT
--- NOTE | 2019-03-22 12:35 | ED.PDOC ---
History of Present Illness - General Chief Complaint: General Stated Complaint: fever Time Seen by Provider: 03/22/19 12:00 Source: family Exam Limitations: other - non-verbal - History of Present Illness Initial Comments: 83-year-old male presents to the emergency department via EMS for fever onset this morning. Reportedly the patient had a temperature of 105 at the retirement however this was only taken on 1 measurement and subsequent measurements showed a lessening of the fever and the last was 101. The patient's states that the patient is at his baseline status and he does not normally talk or walk on his own due to his severe dementia. Per the he has a recent history of some mild retching and vomiting episodes which were significantly improved after the patient was started on Zantac, however due to a recent recall the medication is no longer available and he has not been started on anything else for reflux. Other than the patient's temperature and the episode of retching the has not noticed anything out of the ordinary for him. The patient is completely nonverbal and is unable to give any further history details at this time. Pt does have a DNR in place. Allergies/Adverse Reactions: Allergies NO KNOWN ALLERGY Allergy (Verified 03/22/19 12:41) Home Medications: Ambulatory Orders Acetaminophen [Tylenol] 500 mg PO Q4HR PRN #90 tab 11/30/17 Albuterol Sulfate Nebs [Proventil Nebs] 2.5 mg INH Q4HR PRN #30 vial 11/30/17 Ibuprofen [Motrin] 400 mg PO Q4HR #90 tab 11/30/17 Cetirizine HCl [Allergy Relief] 10 mg PO DAILY 03/22/19 Guaifenesin 400 mg PO Q4HR PRN 03/22/19 Lactobacillus [Acidophilus] 10 mg PO BID 03/22/19 Nystatin Powder [Mycostatin] 0 gm TOP DAILY PRN 03/22/19 Ondansetron Odt [Zofran ODT] 4 mg PO Q8H PRN #10 tab 03/22/19 raNITIdine HCL [Zantac] 150 mg PO DAILY 03/22/19 Review of Systems - Review of Systems Unable to Obtain Due To: dementia Past Medical History (General) - Patient Medical History Hx Seizures: No Hx Stroke: No Hx Dementia: Yes Hx Asthma: No Hx of COPD: No Hx Cardiac Disorders: No Hx Congestive Heart Failure: No Hx Pacemaker: No Hx Hypertension: Yes Hx Diabetes: No Hx Gastroesophageal Reflux: Yes Hx Cancer: No Hx MRSA: No Surgical History: appendectomy - Vaccination History Hx Tetanus, Diphtheria Vaccination: Yes Hx Influenza Vaccination: Yes Hx Pneumococcal Vaccination: Yes Immunizations Up to Date: Yes - Social History Hx Tobacco Use: No Hx Alcohol Use: No Hx Substance Use: No Hx Substance Use Treatment: No Hx Depression: No Hx Physical Abuse: No Hx Emotional Abuse: No - Activities of Daily Living Residential/Assisted Living (if applicable):: [facility] Family Medical History - Family History Father Family History: No Known Living Status: Age at (years of age): 75 Hx Family Asthma: Yes - mom Hx Family Cancer: Yes - prostate-dad Mother Living Status: Age at (years of age): 97 Hx Family Asthma: Yes Physical Exam - Physical Exam General Appearance: Alert, Frail, No apparent distress Eye Exam: bilateral normal Ears, Nose, Throat: normal pharynx, other - Very dry mucous membranes Neck: normal inspection, other - trachea midline Respiratory: no respiratory distress, other - coarse BS with rhonchi Cardiovascular/Chest: regular rate, rhythm, no edema Peripheral Pulses: radial,right: 2+, radial,left: 2+, dorsalis pedis,right: 2+, dorsalis pedis,left: 2+ Gastrointestinal/Abdominal: normal bowel sounds, soft, no organomegaly, other - no guarding Back Exam: normal inspection Extremity: normal inspection, no pedal edema Neurologic: other - alert but does not answer questions or follow commands. At baseline status per . Skin Exam: normal color, warm/dry Comments: Vital Signs - 8 hr 03/22/19 12:04 Temperature 100.9 F H Pulse Rate [ 117 H MONITOR] Respiratory 24 Rate Blood Pressure 72/49 [LA] O2 Sat by Pulse 94 L Oximetry Progress - Progress Progress: 03/22/19 13:38 Lab and imaging results so far reviewed. Pt lactate significantly elevated, out of proportion of what I would expect, it was obtained immediately after removal of a tourniquet and with that in mind a repeat was requested. Pt recheck: After 1 L of NS: Heart rate is now below 100 and blood pressure is 125 systolic. I have updated the patient's on the lab findings so far along the plan for obtaining a repeat lactic acid. At this time we have still not obtained a urine sample, but the does not want any sort of catheter as the patient has had significant difficulties with this in the past and was told by her urologist that he should never have a catheter placed. At this time we're attempting to collect a sample with a urine cup. I had a long discussion with the patient's about what she would like to happen and she states that she does not want the patient admitted to the hospital. He has had episodes like this before and was discharged home with oral antibiotics and did fine. She has understanding of the patient's condition and quality of life does not want any extraordinary measures taken and really does not want him admitted to the hospital should come to that. 03/22/19 14:11 Repeat lactate still elevated at 8.2. Pt still has not urinated. Old record review: Last visit 12/23/18 for unresponsiveness- found to have elevated WBC and lactate of 5 at that time with UTI. refused admission and pt sent back on oral abx. Urine culture grew proteus sensitive to cephalosporins. Pt recheck: VS have significantly improved. HR and BP now normla. I discussed with the patient's at the bedside that his lactic acid is significantly elevated and this along with his presenting symptoms is consistent with severe sepsis. I recommended admission to the hospital for continued IV antibiotics as well as fluids however she does not want to have the patient admitted. She would like to go back to his facility with oral antibiotics. We discussed the severity of his condition and at this point we still do not have a source of infection, I assume the source is his urine and he was empirically treated with rocephin, however he has still not urinated in the department. We also discussed that decrease in urine volume could be related to the severity of his illness however she states that he was urinating earlier this morning without difficulty. We also discussed the elevated bilirubin but with normal liver enzymes and his abdomen being soft and nontender and I am not sure how this is related to his illness at this time however to evaluate this further imaging would be necessary but the does not want any further testing. We discussed restarting an acid reducing medication as pt retching seemed worse off zantac and she has pepcid at the [facility] for him. We also discussed rx for zofran and she agrees. She would like for him to be discharged to the retirement and she was given instructions at any point if she feels uncomfortable with the patient's progress or feels that he has worsened and wants him to be admitted to the hospital she could return at any time. The patient's has voiced understanding and agrees with the plan. - Results/Orders Results/Orders: 03/22/19 12:00 IV Care:Saline Lock per Protoc QSHIFT Telemetry .ONCE Sodium Chloride 0.9% (Flush) [Saline Flush Syringe] 10 ml IV PRN PRN EKG Stat Pulse Ox Stat URINALYSIS Stat 03/22/19 12:08 Sodium Chloride 0.9% 1000ML [Ns 1000 ml] 1,000 ml IVS .QD 03/22/19 12:50 BLOOD CULTURE Stat Laboratory Results - last 24 hr 03/22/19 03/22/19 03/22/19 12:10 12:10 12:10 WBC 11.5 H RBC 5.24 Hgb 15.5 Hct 46.8 MCV 89.3 MCH 29.6 MCHC 33.1 RDW 14.1 Plt Count 134 MPV 9.0 Absolute Neuts (auto) 10.90 H Absolute Lymphs (auto) 0.40 L Absolute Monos (auto) 0.20 Absolute Eos (auto) 0.00 Absolute Basos (auto) 0.00 Neutrophils % 94.9 H Lymphocytes % 3.3 L Monocytes % 1.7 L Eosinophils % 0.0 L Basophils % 0.1 PT 12.4 H INR 1.24 H Sodium 139 Potassium 3.5 L Chloride 104 Carbon Dioxide 17 L Anion Gap 21.5 H BUN 21 H Creatinine 1.41 H BUN/Creatinine Ratio 14.9 Random Glucose 131 H Serum Osmolality 282.3 Lactic Acid Calcium 8.6 Total Bilirubin 2.4 H* AST 46 H ALT < 8 L Alkaline Phosphatase 106 Creatine Kinase 36 L CK-MB (CK-2) 2.7 CK-MB (CK-2) % Not Reportable Troponin I 0.05 Serum Total Protein 6.9 Albumin 3.1 L Globulin 3.8 H Albumin/Globulin Ratio 0.8 L Lipase 03/22/19 03/22/19 03/22/19 12:10 12:50 13:45 WBC RBC Hgb Hct MCV MCH MCHC RDW Plt Count MPV Absolute Neuts (auto) Absolute Lymphs (auto) Absolute Monos (auto) Absolute Eos (auto) Absolute Basos (auto) Neutrophils % Lymphocytes % Monocytes % Eosinophils % Basophils % PT INR Sodium Potassium Chloride Carbon Dioxide Anion Gap BUN Creatinine BUN/Creatinine Ratio Random Glucose Serum Osmolality Lactic Acid 8.6 H* 8.2 H* Calcium Total Bilirubin AST ALT Alkaline Phosphatase Creatine Kinase CK-MB (CK-2) CK-MB (CK-2) % Troponin I Serum Total Protein Albumin Globulin Albumin/Globulin Ratio Lipase 22 EKG: Interpreted by myself at 1212. Sinus tachycardia rate 113. Left axis deviation. Left bundle branch block. Not significantly changed from previous EKG on 12/23/18. CXR: IMPRESSION: Patient is rotated as before which limits evaluation of the mediastinum. However, heart appears enlarged as before. Mild central pulmonary vascular congestion is unchanged. No lobar consolidation. No pleural effusion or pneumothorax. Thoracic spondylosis. Electronically signed by: Alexei Cordoba MD 03/22/2019 12:31 PM CDT Departure - Departure Clinical Impression: Advanced dementia, Lactic acid acidosis Fever Qualifiers: Fever type: unspecified Qualified Code(s): R50.9 - Fever, unspecified GERD (gastroesophageal reflux disease) Qualifiers: Esophagitis presence: esophagitis presence not specified Qualified Code(s): K21.9 - Gastro-esophageal reflux disease without esophagitis Time of Disposition: 14:12 Disposition: Discharge to SNF Condition: Fair Departure Forms: ED Discharge - Pt. Copy, Patient Portal Self Enrollment Instructions: Fever, Adult (DC) Referrals: Brian Munroe MD [Primary Care Provider] - 1-5 Days Prescriptions: Ondansetron Odt [Zofran ODT] 4 mg PO Q8H PRN #10 tab PRN Reason: Vomiting Home Medications: Ambulatory Orders Acetaminophen [Tylenol] 500 mg PO Q4HR PRN #90 tab 11/30/17 Albuterol Sulfate Nebs [Proventil Nebs] 2.5 mg INH Q4HR PRN #30 vial 11/30/17 Ibuprofen [Motrin] 400 mg PO Q4HR #90 tab 11/30/17 Cetirizine HCl [Allergy Relief] 10 mg PO DAILY 03/22/19 Guaifenesin 400 mg PO Q4HR PRN 03/22/19 Lactobacillus [Acidophilus] 10 mg PO BID 10/28/19 Nystatin Powder [Mycostatin] 0 gm TOP DAILY PRN 03/22/19 Ondansetron Odt [Zofran ODT] 4 mg PO Q8H PRN #10 tab 03/22/19 raNITIdine HCL [Zantac] 150 mg PO DAILY 03/22/19 Additional Instructions: Give keflex 500mg TID as directed. Return for worsening condition or any other concerns. Comments: Rx for Keflex suspension 500 mg TID x10 days was sent with the pt . DO Marla Fajardo#[id number]
[2019-03-22 14:13] VITALS: BP 139/80; O2SAT 96
== END 2019-03-22 14:54 ==
LOC: ER 11:50
DX: F50.9 Eating disorder, unspecified (principal); K21.9 Gastro-esophageal reflux disease without esophagitis; E87.2 Acidosis; F03.90 Unspecified dementia, unspecified severity, without behavioral disturbance, psychotic disturbance, mood disturbance, and anxiety; I44.7 Left bundle-branch block, unspecified; I10 Essential (primary) hypertension; Z79.899 Other long term (current) drug therapy
CPT/HCPCS: 36415; 71045; 80053; 82550; 82553; 83605; 83690; 84484; 85025; 85610; 87040; 87077; 87186; 93005; 94760; J0696; J7030; J7050